=== PATIENT | female | born 1965 | race Asian ===

== ENCOUNTER → 2021-03-14 | Outpatient (CLI) | payer SELFPAY ==
[2021-03-14 12:31] LABS: BASOPHILS % (AUTO) 0 % (0-10); EOSINOPHILS % (AUTO) 0 % (0-10); HEMATOCRIT 50 % (35-52); HEMOGLOBIN 16.1 g/dL (11.5-16.0); LYMPHOCYTES # (AUTO) 0.9 10^3/uL (1.0-4.0); LYMPHOCYTES % (AUTO) 22 % (12-44); MEAN CORPUSCULAR HEMOGLOBIN 29 pg (25-34); MEAN CORPUSCULAR HGB CONC 32 g/dL (32-36); MEAN CORPUSCULAR VOLUME 91 fL (80-99); MEAN PLATELET VOLUME 9.4 fL (9.0-12.2); MONOCYTES # (AUTO) 0.4 10^3/uL (0.0-1.0); MONOCYTES % (AUTO) 9 % (0-12); NEUTROPHILS % (AUTO) 69 % (42-75); PLATELET COUNT 201 10^3/uL (130-400); WHITE BLOOD COUNT 4.3 10^3/uL (4.3-11.0)
[2021-03-14 12:52] LABS: ALBUMIN 4.4 GM/DL (3.2-4.5); BILIRUBIN,TOTAL 0.4 MG/DL (0.1-1.0); CALCIUM 8.7 MG/DL (8.5-10.1); CREATININE SERUM 0.8 MG/DL (0.60-1.30); POTASSIUM 3.5 MMOL/L (3.6-5.0); TOTAL PROTEIN 7.5 GM/DL (6.4-8.2)
== END ==
LOC: LAB 11:46 → MERGE 11:46
PROVIDERS: ATTEND Family Medicine
DX: R19.7 Diarrhea, unspecified (principal)
CPT/HCPCS: 36415; 80053; 82150; 85025

== ENCOUNTER → 2021-03-21 | Outpatient (CLI) | payer SELFPAY ==
[~2021-03-21] MED LIST: BARIUM for suspension 96% w/w (Vanilla Silq Medium Density) PO ONE
--- NOTE | 2021-03-21 15:43 | Diagnostic Imaging Report ---
INDICATION: Nausea, vomiting, and diarrhea with difficulty keeping food down for the last month. Patient also has weight loss. TECHNIQUE: The patient ingested thin barium and imaging over the esophagus, stomach, and proximal small bowel was performed. A total of 1 minute and 6 seconds of fluoroscopic time was utilized. 39 images were obtained. FINDINGS: The preliminary radiograph of the abdomen is unremarkable. The esophagus has a smooth contour. No mass or stricture is seen. There is free flow of barium into the stomach. The stomach has a normal configuration. No mass or ulceration is seen. The duodenal bulb is without deformity. The visualized proximal small bowel loops are unremarkable. IMPRESSION: Unremarkable upper GI. Dictated by: Dictated on workstation # [id number]
== END ==
LOC: RAD 13:00
PROVIDERS: ATTEND Family Medicine
DX: R11.2 Nausea with vomiting, unspecified (principal); R19.7 Diarrhea, unspecified; R63.8 Other symptoms and signs concerning food and fluid intake; R13.10 Dysphagia, unspecified; R63.4 Abnormal weight loss
CPT/HCPCS: 74246